=== PATIENT | male | born 1955 ===

== ENCOUNTER 2019-12-19 19:20 | Emergency (ER) | payer BC ==
[2019-12-19 19:31] VITALS: BP 129/75; PULSE 68
[2019-12-19] MEDS ORDERED: Bupivacaine 0.5% 10 ML SDV INJECT ONE (19:39)
[2019-12-19] MEDS ORDERED: Lidocaine 1% 10 ML MDV INJECT ONE (19:39)
--- NOTE | 2019-12-19 19:45 | EDM.PDOC ---
ED HPI GENERAL MEDICAL PROBLEM - General Chief Complaint: Laceration Stated Complaint: CUT MIDDLE FINGER LEFT HAND Time Seen by Provider: 12/19/19 19:29 Source of Information: Reports: Patient, Family () History Limitations: Reports: No Limitations - History of Present Illness INITIAL COMMENTS - FREE TEXT/NARRATIVE: Mr. Sandoval is a very pleasant 64-year-old gentleman with a past medical history significant for coronary artery disease, status post an [place] in 1999, on an 81 mg aspirin per day, who now presents the ED after sustaining a laceration to the dorsal aspect of his left third finger around 18:50 this evening. He states that he was cutting some tin with tin snips at home, when he accidentally cut his finger. He is otherwise uninjured. Here in the ED, the patient is found to be hemodynamically stable, afebrile, saturating 96% on room air. The patient states that his last tetanus vaccination was in 2015. Other than tonight's injury, the patient denies recent fever, chills, sore throat, ear pain, nasal or sinus congestion, cough, dyspnea, chest pain, palpitations, nausea, vomiting, constipation, diarrhea, abdominal pain, urinary symptoms, recent weight gain or weight loss, recent bloody bowel movements or black bowel movements, recent joint aches, headaches, or rashes. The patient's PCP is Celena Katz NP. His Traffic Administrator is Dr. Evans. His Cto is Dr. Weller. - Related Data Allergies Allergy/AdvReac Type Severity Reaction Status Date / Time No Known Allergies Allergy Verified 12/19/19 19:31 Home Meds: Home Meds Aspirin [Halfprin] 81 mg PO DAILY 06/15/16 [History] Cholecalciferol (Vitamin D3) [Vitamin D3] 2,000 unit PO DAILY 06/15/16 [History] Folic Acid 1 mg PO DAILY 06/15/16 [History] Lisinopril 40 mg PO BEDTIME 06/15/16 [History] Methotrexate 2.5 mg PO BEDTIME 06/15/16 [History] Multivitamin [Multiple Vitamins] 1 each PO DAILY 06/15/16 [History] Nitroglycerin [Nitro-Dur 0.4 MG/Hr] 0.4 mg TRDERM BEDTIME 06/15/16 [History] R[place]-3/DHA/Epa/Fish Oil [Fish Oil EC 1,200 mg Softgel] 1 cap PO DAILY 06/15/16 [History] Ranitidine HCl [Ranitidine] 300 mg PO BEDTIME 06/15/16 [History] Sertraline [Zoloft] 100 mg PO BEDTIME 06/15/16 [History] atorvaSTATin [Lipitor] 80 mg PO BEDTIME 06/15/16 [History] Past Medical History Cardiovascular History: Reports: CAD, High Cholesterol, Hypertension, [place] (1999) Gastrointestinal History: Reports: GERD Psychiatric History: Reports: Anxiety, Depression - Past Surgical History HEENT Surgical History: Reports: Adenoidectomy, Naso-Sinus Surgery, Oral Surgery (wisdom teeth extraction), Tonsillectomy Cardiovascular Surgical History: Reports: Coronary Artery Stent (x 1999) Social & Family History - Tobacco Use Smoking Status *Q: Never Smoker Second Hand Smoke Exposure: No - Caffeine Use Caffeine Use: Reports: None - Alcohol Use Alcohol Use History: Yes Alcohol Use Frequency: Socially - Recreational Drug Use Recreational Drug Use: No - Living Situation & Occupation Living situation: Reports: , with Spouse Occupation: Retired ED ROS GENERAL - Review of Systems Review Of Systems: Comprehensive ROS is negative, except as noted in HPI. Musculoskeletal: Reports: Back Pain (chronic) ED EXAM, SKIN/RASH Exam: See Below Exam Limited By: No Limitations General Appearance: Alert, WD/WN, No Apparent Distress Extremities: Other (There is an approximately 1.5 cm linear laceration running tangential to the patient's finger located over the dorsal aspect of the left 3rd PIP joint. With the finger extended, the edges of the wound approximated nicely, however, with any flexion of the finger, the wound bleeds venous blood fairly vigorously. The bleeding is able to be significantly diminished with direct pressure to the patient's finger just proximal to the wound. Good extension of the finger, and the patient denies any tingling or numbness to the distal aspect of the finger.) ED SKIN PROCEDURES - Laceration/Wound Repair Left Hand Appearance: Subcutaneous, Linear, Clean Distal NVT: Neuro & Vascular Intact, No Tendon Injury Anesthetic Type: Local Local Anesthesia - Lidocaine (Xylocaine): 1% Plain (50:50 admixture) Local Anesthesia - Bupivicaine (Marcaine): 0.5% Plain (50:50 admixture) Local Anesthetic Volume: 1cc Skin Prep: Providone-Iodine (Betadine) Exploration/Debridement/Repair: Wound Explored, In a Bloodless Field, Explored to Base, No Foreign Material Found Closed with: Sutures Lac/Wound length In cm: 1.5 Suture Size: 3-0 # of Sutures: 6 Suture Type: Nylon (Ethilon), Running, Simple Drain Placement: No Sterile Dressing Applied: Nurse Tetanus Status Addressed: Yes Complications: No Course - Vital Signs Last Recorded V/S: Last Vital Signs Temp 36.4 C 12/19/19 19:29 Pulse 68 12/19/19 19:29 Resp 18 12/19/19 19:29 BP 129/75 12/19/19 19:29 Pulse Ox 96 12/19/19 19:29 - Orders/Labs/Meds Meds: Medications Discontinued Medications Generic Name Dose Route Start Last Admin Trade Name Tahira PRN Reason Stop Dose Admin Bupivacaine HCl 10 ml 12/19/19 19:39 Sensorcaine-Mpf 0.5% INJECT 12/19/19 19:40 ONETIME ONE Lidocaine HCl 10 ml 12/19/19 19:39 Xylocaine 1% INJECT 12/19/19 19:40 ONETIME ONE - Re-Assessments/Exams Free Text/Narrative Re-Assessment/Exam: 12/19/19 19:40 As above, the patient lacerated the dorsal aspect of his left third PIP joint. No ligamentous injury, and no altered sensation to the finger, however, the wound is bleeding fairly vigorously and will require suturing. 12/19/19 20:09 A sterile field was established using Betadine to the patient's hand, and sterile drapes. The wound was then locally anesthetized using a 50-50 admixture of lidocaine 1% without epinephrine and bupivacaine 0.5% without epinephrine. The wound was then closed with 6 simple running sutures using 3-0 Ethilon. Fol lowing the procedure, there was good hemostasis. The patient tolerated the procedure well. A sterile bandage will be placed over the wound per Helen EDWARDS. The sutures should be ready for removal by 12/27/2019. Departure - Departure Time of Disposition: 20:10 Disposition: Home, Self-Care 01 Condition: Good Clinical Impression: Laceration of left middle finger - Discharge Information *PRESCRIPTION DRUG MONITORING PROGRAM REVIEWED*: Not Applicable *COPY OF PRESCRIPTION DRUG MONITORING REPORT IN PATIENT BOBBY: Not Applicable Referrals: Celena Katz NP [Primary Care Provider] - Santiago Evans MD [Ordering Only Provider] - Rossi Weller MD [Ordering Only Provider] - Forms: ED Department Discharge Additional Instructions: You were seen in the emergency room after accidentally cutting the back of your left middle finger. Your wound was closed with 6 running sutures. Keep the wound clean with ordinary soap and water when you bathe. Pat dry, then apply a clean Band-Aid, daily. Do not apply antibiotic ointment. You may take Tylenol or ibuprofen as needed for discomfort. The sutures should be ready for removal by 12/27/2019. They can be removed at the walk-in clinic, by a nurse at your PCPs office, or in the ER. If you keep the wound clean, it should not get infected, however, if there are any concerns of infection, such as increased swelling, redness, drainage, or inordinate pain, please do not hesitate to return to the ER for reevaluation. Sepsis Event Note (ED) - Evaluation Sepsis Screening Result: No Definite Risk - Focused Exam Vital Signs: Vital Signs Temp Pulse Resp BP Pulse Ox 12/19/19 19:29 36.4 C 68 18 129/75 96
== END 2019-12-19 20:19 | disposition home or self-care (01) ==
LOC: JD.ED 19:20
DX: S61.213A Laceration without foreign body of left middle finger without damage to nail, initial encounter (principal); I25.10 Atherosclerotic heart disease of native coronary artery without angina pectoris; I25.2 Old myocardial infarction; E78.00 Pure hypercholesterolemia, unspecified; I10 Essential (primary) hypertension; K21.9 Gastro-esophageal reflux disease without esophagitis; F41.9 Anxiety disorder, unspecified; F32.9 Major depressive disorder, single episode, unspecified; W26.8XXA Contact with other sharp object(s), not elsewhere classified, initial encounter; Z79.82 Long term (current) use of aspirin; Z79.899 Other long term (current) drug therapy; Y92.009 Unspecified place in unspecified non-institutional (private) residence as the place of occurrence of the external cause
CPT/HCPCS: 12001; 99282; J2001; J3490